=== PATIENT | male | born 1965 | race Caucasian/White ===

== ENCOUNTER 2021-12-08 19:19 | Emergency (ER) | payer BC, SELFPAY ==
[2021-12-08 19:24] VITALS: BP 134/77; PULSE 101; RESP 18; TEMP 36.5; O2SAT 95; BMI 38.0
--- NOTE | 2021-12-08 19:44 | ED.NURSE ---
Finger soaking in hibiclens
--- NOTE | 2021-12-08 19:56 | ED_ITS ---
HPI - General Adult General Chief complaint: Laceration/Wound Stated complaint: Smashed Finger Time Seen by Provider: 12/08/21 19:23 Source: patient Mode of arrival: ambulatory Limitations: no limitations History of Present Illness HPI narrative: 56-year-old male coming in today after pinching the tip of the left middle finger while he was laminated floor E. Denies any other injury. Last tetanus was in 2017. Related Data Home Medications Medication Instructions Recorded Confirmed Avapro 12/08/21 Lipitor 12/08/21 metformin 12/08/21 Allergies Allergy/AdvReac Type Severity Reaction Status Date / Time amlodipine AdvReac constipatio Verified 12/08/21 19:37 n lisinopril AdvReac cough Verified 12/08/21 19:28 Review of Systems Narrative: Denies other injury. PFSH PFS Social History Smoking Status: Current every day smoker How often do you have a drink containing alcohol: monthly or less AUDIT-C Alcohol total score: 1 Non-prescribed substance use: denies use Exam Narrative: Exam Narrative: Well-nourished male in no acute distress. The pad of the left middle finger has been avulsed. The avulsion goes through the skin and into the subcutaneous tissue, subcutaneous tissue though is intact. The avulsed flap of skin is circular and is held on by about a quarter of the circumference of the [place]. Remainder of the hand is normal on exam. Const: Vital Signs, click to edit/add: Vital Signs - 24 hr 12/08/21 19:24 Temperature 97.7 F Pulse Rate [Left P ulse Oximeter] 101 H Respiratory Rate 18 Blood Pressure [Ri ght Upper Arm] 134/77 Pulse Oximetry 95 Course Course Hospital Course: Hand was soaked and cleaned in the usual sterile manner. We did a digital block with 1% lidocaine. 4.0 Ethilon was used to suture the flap back on. Patient tolerated the procedure well. Vital Signs Vital signs: Initial Vital Signs Temperature 97.7 F 12/08/21 19:24 Temperature Source Temporal Artery Scan 12/08/21 19:24 Pulse Rate 101 H 12/08/21 19:24 Respiratory Rate 18 12/08/21 19:24 Blood Pressure 134/77 12/08/21 19:24 Blood Pressure Mean 96 12/08/21 19:24 Blood Pressure Position Sitting 12/08/21 19:24 Pulse Oximetry 95 07/23/22 19:24 Oxygen Delivery Method 12/08/21 19:24 Vital Signs Temperature 97.7 F 12/08/21 19:24 Pulse Rate 101 H 12/08/21 19:24 Respiratory Rate 18 12/08/21 19:24 Blood Pressure 134/77 12/08/21 19:24 Pulse Oximetry 95 12/08/21 19:24 Temperature 97.7 F 12/08/21 19:24 Pulse Rate 101 H 12/08/21 19:24 Respiratory Rate 18 12/08/21 19:24 Blood Pressure 134/77 12/08/21 19:24 Pulse Oximetry 95 12/08/21 19:24 Discharge Plan Discharge Clinical Impression: Laceration Patient Disposition: Home, Self-Care Condition: Improved Additional Instructions: Keep finger clean and dry. If you have to work, wear a glove. Okay to shower as usual however do not soak the hand such as in a bath tub, swimming pool or doing the dishes. Suture removal in 7-10 days with your primary care doctor. Watch for signs of infection which would include redness around the laceration with the redness traveling into the finger and hand, or pus draining from the laceration. If this occurs see your doctor right away. Prescriptions: No Action metformin 0RF Avapro 0RF Lipitor 0RF Follow Up/Referrals: Cornell Suh MD [Primary Care Provider] - Stand Alone Forms: [facility] Info Instructions
--- NOTE | 2021-12-08 20:10 | ED.NURSE ---
Addendum entered by Apolinar Coffey RN 12/08/21 20:38: Bacitracin applied prior to bandaging. Original Note: Pt finger lac on L middle finger bandaged with telfa, gauze wrap, and tube gauze after MD finished suturing.
== END 2021-12-08 20:30 | disposition home or self-care (01) ==
PROVIDERS: Emergency Provider Family Medicine; PCP Family Medicine
DX: S61.213A Laceration without foreign body of left middle finger without damage to nail, initial encounter (principal); W26.9XXA Contact with unspecified sharp object(s), initial encounter
CPT/HCPCS: 12001; 99283; 99284

== ENCOUNTER 2022-04-27 12:38 | Emergency (ER) | payer BC, SELFPAY ==
[2022-04-27 12:44] VITALS: BP 173/96; PULSE 108; TEMP 36.6; O2SAT 94; BMI 38.7
--- NOTE | 2022-04-27 13:10 | ED_ITS ---
HPI - Wound/Laceration General Chief Complaint: Laceration/Wound Stated Complaint: Cut on RT hand Time Seen by Provider: 04/27/22 12:41 History of Present Illness HPI narrative: This 56-year-old male comes in with a laceration to his right hand. He was using a sharp knife that fell any attempted to catch it on the way to the floor. The knife cut into the dorsal aspect of his right hand overlying the area of the 4th and 5th metacarpals. He has a 3 cm linear laceration in this area. There is no dysfunction of his tendons or nerves related to this injury. He states that his tetanus is up-to-date. Related Data Home Medications Medication Instructions Recorded Confirmed atorvastatin 20 mg tablet mg 04/27/22 irbesartan 75 mg tablet mg 04/27/22 metformin 500 mg tablet,extended mg PO 04/27/22 release 24 hr Allergies Allergy/AdvReac Type Severity Reaction Status Date / Time amlodipine AdvReac constipatio Verified 12/08/21 19:37 n lisinopril AdvReac cough Verified 12/08/21 19:28 Review of Systems Status of ROS: Reports: 10 or more systems reviewed and unremarkable except as noted in History and below Narrative: Constitutional: No fevers, no weight gain or loss. Eyes: No discharge. No vision changes. HENT: No congestion, no sore throat, no ear pain. Cardiovascular: No chest pain, no palpitations. Respiratory: No shortness of breath, no wheezes, no cough. Gastrointestinal: No abdominal pain, no vomiting, no diarrhea. Genitourinary: No dysuria, no hematuria. Musculoskeletal: Normal range of motion. Skin: No rashes, no pruritis. Neurological: No dizziness, weakness, sensory change, speech change. Endo/Heme/Allergies: No bruising or bleeding. No polydipsia. Pysch: no suicidality, no anxiety, no insomnia. All other systems reviewed and are negative. PFSH PFS Social History Smoking Status: Current every day smoker How often do you have a drink containing alcohol: monthly or less AUDIT-C Alcohol total score: 1 Non-prescribed substance use: denies use Exam Narrative: Exam Narrative: Constitutional: Well-developed, well-nourished, no acute distress. HEENT: Normocephalic, atraumatic. Neck: Normal range of motion. Nontender. Supple. Heart: Intact distal pulses. Lungs: No chest discomfort. No wheezes, rhonchi, or rales. Abdomen: Nontender. Back: Normal range of motion. Extremities: Normal range of motion. No injury. Skin: No rash. Warm. No erythema or pallor. 3 cm linear laceration on the dorsal aspect of the right hand. Neurologic: No altered sensation. No weakness. Alert and oriented. Psychiatric: No suicidality. No anxiety or depression. No insomnia. Nursing notes and vitals signs are reviewed. Const: Vital Signs, click to edit/add: Vital Signs - 24 hr 04/27/22 12:44 Temperature 97.9 F Pulse Rate [Left P ulse Oximeter] 108 H Blood Pressure [Le ft Upper Arm] 173/96 H Pulse Oximetry 94 Oxygen Delivery Me thod Room Air Course Vital Signs Vital signs: Initial Vital Signs Temperature 97.9 F 04/27/22 12:44 Temperature Source Temporal Artery Scan 04/27/22 12:44 Pulse Rate 108 H 04/27/22 12:44 Blood Pressure 173/96 H 04/27/22 12:44 Blood Pressure Mean 121 04/27/22 12:44 Blood Pressure Position Sitting 04/27/22 12:44 Pulse Oximetry 94 04/27/22 12:44 Oxygen Delivery Method 04/27/22 12:44 Vital Signs Temperature 97.9 F 04/27/22 12:44 Pulse Rate 108 H 04/27/22 12:44 Blood Pressure 173/96 H 04/27/22 12:44 Pulse Oximetry 94 04/27/22 12:44 Oxygen Delivery Method 04/27/22 12:44 Temperature 97.9 F 04/27/22 12:44 Pulse Rate 108 H 04/27/22 12:44 Blood Pressure 173/96 H 04/27/22 12:44 Pulse Oximetry 94 04/27/22 12:44 Oxygen Delivery Method 04/27/22 12:44 MDM - Wound/Laceration MDM Narrative Medical decision making narrative: I discussed repair options with the patient who elected to have Dermabond applied with Steri-Strips. This was done after cleansing the wound with water. Dermabond was applied with excellent results. A Steri-Strip was then applied afterwards to strength in the wound. Instructions were given regarding wound care. Discharge Plan Discharge Clinical Impression: Laceration Patient Disposition: Home, Self-Care Condition: Improved Additional Instructions: Keep wound clean and dry. Follow up with MD as needed or return if worsening. Prescriptions: No Action atorvastatin 20 mg tablet Label Comments: TAKE 1 TABLET (20 MG) BY MOUTH AT BEDTIME. irbesartan 75 mg tablet Label Comments: TAKE 1 TABLET (75 MG) BY MOUTH ONCE DAILY. metformin 500 mg tablet extended release 24 hr PO Label Comments: TAKE 2 TABLETS BY MOUTH WITH LARGEST MEAL OF THE DAY. Follow Up/Referrals: Cornell Suh MD [Primary Care Provider] - Stand Alone Forms: [employer] Info Instructions
== END 2022-04-27 13:37 | disposition home or self-care (01) ==
LOC: ED 13:24
PROVIDERS: Emergency Provider Emergency Medicine Emergency Medical Services; PCP Family Medicine
DX: S61.411A Laceration without foreign body of right hand, initial encounter (principal); W26.9XXA Contact with unspecified sharp object(s), initial encounter
CPT/HCPCS: 12001; 99283; 99284